=== PATIENT | male | born 1985 ===

== ENCOUNTER 2017-03-06 05:11 | Emergency (ER) | payer BC ==
[2017-03-06 05:25] VITALS: BP 140/89; PULSE 89; RESP 17; TEMP 98.8; O2SAT 99
[2017-03-06] MEDS ORDERED: Alum-Mag Hydrox-Simethicone Susp (30 mL) PO STA (05:27)
--- NOTE | 2017-03-06 05:32 | ED PDOC ---
HPI: Abdomen Time Seen by Provider: 03/06/17 05:17 Chief Complaint (Nursing): Abdominal Pain Chief Complaint (Provider): Abdominal Pain History Per: Patient Additional Complaint(s): 31 yo male, no PMH, presents to ED with complaints of epigastric abdominal pain since 2 am. No associatyed nausea or vomiting. No fever or chills. Pain is non radiating. Past Medical History Reviewed: Nursing Documentation, Vital Signs Vital Signs: Last Vital Signs Temp 98.8 F 03/06/17 05:19 Pulse 89 03/06/17 05:19 Resp 17 03/06/17 05:19 BP 140/89 03/06/17 05:19 Pulse Ox 99 03/06/17 05:19 - Medical History PMH: No Chronic Diseases - Surgical History Surgical History: No Surg Hx - Family History Family History: States: No Known Family Hx - Living Arrangements Living Arrangements: With Family - Social History Current smoker - smoking cessation education provided: No Alcohol: Social Drugs: Denies - Allergies Allergies/Adverse Reactions: Allergies Allergy/AdvReac Type Severity Reaction Status Date / Time No Known Allergies Allergy Verified 03/06/17 05:26 Review of Systems ROS Statement: Except As Marked, All Systems Reviewed And Found Negative Gastrointestinal: Positive for: Abdominal Pain Physical Exam - Reviewed Nursing Documentation Reviewed: Yes Vital Signs Reviewed: Yes - Physical Exam Appears: Positive for: Non-toxic, Uncomfortable Head Exam: Positive for: ATRAUMATIC, NORMAL INSPECTION, NORMOCEPHALIC Skin: Positive for: Normal Color, Warm, DRY Eye Exam: Positive for: EOMI, Normal appearance, PERRL ENT: Positive for: Normal ENT Inspection Neck: Positive for: Normal, Painless ROM Cardiovascular/Chest: Positive for: Regular Rate, Rhythm Respiratory: Positive for: CNT, Normal Breath Sounds Gastrointestinal/Abdominal: Positive for: Bowel Sounds, Soft, Tenderness ( epigastric), Other ((-) Miraz's sign) Back: Positive for: Normal Inspection Extremity: Positive for: Normal ROM Neurologic/Psych: Positive for: Alert, Oriented - ECG O2 Sat by Pulse Oximetry: 99 Medical Decision Making Medical Decision Making: IV access established and treatment initiated with IVF, Toradol and GI cocktail Diagnostics ordered. Disposition - Clinical Impression Clinical Impression: Abdominal pain - Patient ED Disposition Is Patient to be Admitted: No - Disposition Disposition: Routine/Home Disposition Time: 05:32 Condition: STABLE - POA Present On Arrival: None
--- NOTE | 2017-03-06 06:02 | ED PDOC ---
- Laboratory Results Result Diagrams: 03/06/17 05:40 03/06/17 05:40 - ECG O2 Sat by Pulse Oximetry: 99 (RA) Pulse Ox Interpretation: Normal Medical Decision Making Medical Decision Making: Time: 06:00 --Right upper quadrant US [facility]Pending ultrasound, reassessment, and disposition. Time: 07:00 --Transferred patient to Dr. Simran DINERO --Pending ultrasound, reassessment, and disposition. Disposition - Clinical Impression Clinical Impression: Abdominal pain, Gastritis - POA Present On Arrival: None - Disposition Referrals: [facility] [Outside] Disposition: Transfer of Care Disposition Time: 07:00 Condition: STABLE Prescriptions: Pantoprazole Sodium [Protonix] 40 mg PO DAILY #30 tablet. Instructions: Gastritis (ED) Patient Signed Over To: Aurelio Khalil
[2017-03-06 06:23] LABS: BASO # 0.1 K/uL (0.0-0.2); BASO % 0.5 % (0.0-2.0); EOS # 0.2 K/uL (0.0-0.7); EOS % 1.6 % (0.0-4.0); HEMATOCRIT 44.2 % (35.0-51.0); LYMPH # 2.9 K/uL (1.0-4.3); LYMPH % 27.8 % (20.0-40.0); MEAN CELL VOLUME 80.9 fl (80.0-94.0); MEAN CORPUSCULAR HEMOGLOBIN 26.4 pg (27.0-31.0); MEAN CORPUSCULAR HGB CONC 32.6 g/dL (33.0-37.0); MEAN PLATELET VOLUME 7.6 fl (7.2-11.7); MONO # 0.6 K/uL (0.0-0.8); MONO % 5.4 % (0.0-10.0); NEUT # 6.7 K/uL (1.8-7.0); NEUT % 64.7 % (50.0-75.0); RED CELL DISTRIBUTION WIDTH 13.8 % (11.5-14.5); WHITE BLOOD COUNT 10.3 K/uL (4.8-10.8)
--- NOTE | 2017-03-06 06:34 | ED PDOC ---
- Laboratory Results Result Diagrams: 03/06/17 05:40 03/06/17 05:40 - ECG O2 Sat by Pulse Oximetry: 99 (RA) Pulse Ox Interpretation: Normal Medical Decision Making Medical Decision Making: Time: 07:00 Pt signed over to me from Dr. Pinto pending ultrasound, reassessment, and disposition. Scribe Attestation: Documented by Stacey East, acting as a scribe for Aurelio Khalil MD. Provider Scribe Attestation: All medical record entries made by the Scribe were at my direction and personally dictated by me. I have reviewed the chart and agree that the record accurately reflects my personal performance of the history, physical exam, medical decision making, and the department course for this patient. I have also personally directed, reviewed, and agree with the discharge instructions and disposition. Disposition - Clinical Impression Clinical Impression: Abdominal pain, Gastritis - POA Present On Arrival: None - Disposition Referrals: [facility] [Outside] Disposition: Routine/Home Disposition Time: 10:38 Condition: STABLE Prescriptions: Pantoprazole Sodium [Protonix] 40 mg PO DAILY #30 tablet. Instructions: Gastritis (ED)
[2017-03-06 06:40] LABS: ALB/GLOB RATIO 1.7 (1.0-2.1); ALKALINE PHOSPHATASE 91 U/L (38-126); ALT/SGPT 107 U/L (21-72); AMYLASE 62 U/L (30-110); AST/SGOT 86 U/L (17-59); BILIRUBIN,TOTAL 0.7 mg/dl (0.2-1.3); BLOOD UREA NITROGEN 19 mg/dl (9-20); CARBON DIOXIDE 26 mmol/L (22-30); CHLORIDE 104 mmol/L (98-107); GFR AFRICAN-AMERICAN > 60; GLUCOSE,RANDOM 103 mg/dL (75-110); LIPASE 60 U/L (23-300); POTASSIUM 3.7 MMOL/L (3.6-5.0); SODIUM 140 mmol/l (132-148); TOTAL PROTEIN 6.7 G/DL (6.3-8.2)
--- NOTE | 2017-03-06 10:01 | US ---
HISTORY: r/o cholelithiasis COMPARISON: None. TECHNIQUE: Sonographic evaluation of the right upper quadrant of the abdomen. FINDINGS: LIVER: Measures approximately 16 cm cm in length. Smooth surface contour however slight increased echogenicity of the liver parenchyma suggesting fatty infiltration however other infiltrative hepatocellular disease process not excluded. . No mass. No intrahepatic bile duct dilatation. No ascites. GALLBLADDER: Unremarkable. No gallstones. COMMON BILE DUCT: Measures approximately 5 mm. No stones. No dilatation. PANCREAS: Unremarkable as visualized. No mass. No ductal dilatation. RIGHT KIDNEY: Measures measures approximately 10.6 x 5.1 x 5.6 cm in length. Normal echogenicity. No calculus, mass, or hydronephrosis. AORTA: No aneurysmal dilatation. IVC: Unremarkable. OTHER FINDINGS: None . IMPRESSION: Findings suggest mild fatty infiltration however other infiltrative hepatocellular disease process not exclude
[2017-03-06 10:24] LABS: RBC URINE 3 /hpf (0-3); URINE BACTERIA OCC (<OCC); URINE BILIRUBIN NEGATIVE (NEGATIVE); URINE BLOOD NEGATIVE (NEGATIVE); URINE COLOR YELLOW (YELLOW); URINE GLUCOSE (UA) NEG (Normal); URINE KETONE NEGATIVE (NEGATIVE); URINE LEUKOCYTE ESTERASE NEG Leu/uL (Negative); URINE PROTEIN NEGATIVE (NEGATIVE); WBC URINE 2 /hpf (0-5)
== END 2017-03-06 11:21 | disposition home or self-care (01) ==
LOC: H.ER 05:11
DX: K29.70 Gastritis, unspecified, without bleeding (principal); R10.13 Epigastric pain; R10.9 Unspecified abdominal pain
CPT/HCPCS: 76705; 80053; 81003; 82150; 83690; 84484; 85025; 96374; 96375; 99283; J1885; J2405

== ENCOUNTER 2017-05-14 16:52 | Inpatient (IN) | payer BC ==
[2017-05-14] MEDS ORDERED: Sodium Chloride 0.9% 1,000 ML IV STA (17:13)
[2017-05-14 17:42] LABS: BASO # 0.1 K/uL (0.0-0.2); BASO % 0.3 % (0.0-2.0); EOS # 0.1 K/uL (0.0-0.7); EOS % 0.8 % (0.0-4.0); HEMOGLOBIN 14.8 g/dL (12.0-18.0); LYMPH # 1.8 K/uL (1.0-4.3); LYMPH % 11.7 % (20.0-40.0); MEAN CELL VOLUME 80.2 fl (80.0-94.0); MEAN CORPUSCULAR HEMOGLOBIN 26.4 pg (27.0-31.0); MEAN PLATELET VOLUME 7.4 fl (7.2-11.7); MONO # 1.1 K/uL (0.0-0.8); NEUT # 12.2 K/uL (1.8-7.0); NEUT % 80.2 % (50.0-75.0); RBC 5.59 Mil/uL (4.40-5.90); WHITE BLOOD COUNT 15.2 K/uL (4.8-10.8)
[2017-05-14 17:44] LABS: VENOUS BLOOD GAS PCO2 46 mmHg (40-60); VENOUS BLOOD GAS PO2 30 mm/Hg (30-55)
--- NOTE | 2017-05-14 17:45 | ED PDOC ---
HPI: Abdomen Time Seen by Provider: 05/14/17 17:08 Chief Complaint (Nursing): Abdominal Pain Chief Complaint (Provider): Abdominal Pain History Per: Patient History/Exam Limitations: no limitations Onset/Duration Of Symptoms: Days (x2) Current Symptoms Are (Timing): Still Present Additional Complaint(s): Jorge Gomez is a 32 year old male who present to the emergency department with a complaint of constant, sharp left lower quadrant pain ongoing since last night. Denied any fever, chills, nausea, vomiting, constipation, diarrhea, hematuria, dysuria or radiation of pain. PMD: none provided Past Medical History Reviewed: Historical Data, Nursing Documentation, Vital Signs Vital Signs: Last Vital Signs Temp 98.2 F 05/16/17 07:31 Pulse 65 05/16/17 07:31 Resp 20 05/16/17 07:31 BP 113/72 05/16/17 07:31 Pulse Ox 97 05/16/17 07:31 - Medical History PMH: No Chronic Diseases - Surgical History Surgical History: No Surg Hx - Family History Family History: States: Unknown Family Hx - Social History Current smoker - smoking cessation education provided: Yes Alcohol: Occasional Drugs: Denies - Home Medications Home Medications: Ambulatory Orders Medication Instructions Recorded No Known Home Med 05/14/17 - Allergies Allergies/Adverse Reactions: Allergies Allergy/AdvReac Type Severity Reaction Status Date / Time No Known Allergies Allergy Verified 05/14/17 16:59 Review of Systems ROS Statement: Except As Marked, All Systems Reviewed And Found Negative Constitutional: Negative for: Fever, Chills Gastrointestinal: Positive for: Abdominal Pain (LLQ; constant and sharp). Negative for: Nausea, Vomiting, Diarrhea, Constipation Genitourinary Male: Negative for: Dysuria, Hematuria Physical Exam - Reviewed Nursing Documentation Reviewed: Yes Vital Signs Reviewed: Yes - Physical Exam Appears: Positive for: Well, Non-toxic, No Acute Distress Skin: Positive for: Normal Color Cardiovascular/Chest: Positive for: Regular Rate, Rhythm Respiratory: Positive for: CNT, Normal Breath Sounds Gastrointestinal/Abdominal: Positive for: Tenderness (LLQ). Negative for: Normal Exam, Guarding, Rebound Back: Positive for: Normal Inspection. Negative for: L CVA Tenderness, R CVA Tenderness Extremity: Positive for: Normal ROM Neurologic/Psych: Positive for: Alert, lead technical architect II-XII, Oriented - Laboratory Results Result Diagrams: 05/16/17 05:30 05/15/17 09:45 - ECG O2 Sat by Pulse Oximetry: 97 (RA) Pulse Ox Interpretation: Normal Medical Decision Making Medical Decision Making: Initial Impression: Diverticulitis; Kidney stones Initial Plan: * VBG shock panel * CT ABD/Pelivs with IV contrast * Labs * Urine dipstick * Tylenol 650mg PO * NS 1,000ml IV per 1,000 mls/hr * Blood culture * Urine culture * Urinalysis * Re-evaluation Time: 2024 --CT ABD/Pelvis FINDINGS: Lower thorax: There is minimal bibasilar atelectatic change or scarring. ABDOMEN: Liver: There is mild hepatomegaly. Gallbladder and bile ducts: Unremarkable. No calcified stones. No ductal dilation. Pancreas: Unremarkable. No mass. No ductal dilation. Spleen: Unremarkable. No splenomegaly. Adrenals: Unremarkable. No mass. Kidneys and ureters: There may be nonobstructing right nephrolithiasis Stomach and bowel: There is colonic diverticulosis with abnormal wall thickening and fat stranding in the distal descending and proximal sigmoid colon consistent with acute diverticulitis. Directly adjacent to the inflamed diverticulum in this location are a few air locules in the adjacent inflamed mesenteric fat which raises suspicion for focal perforation but no specific signs of abscess. Appendix: The appendix is unremarkable and seen best on axial image 96 of series 3. PELVIS: Bladder: Unremarkable. No mass. Reproductive: Unremarkable as visualized. ABDOMEN and PELVIS: Intraperitoneal space: Unremarkable. No free air. No significant fluid collection. Bones/joints: No acute fracture. No dislocation. Soft tissues: Unremarkable. Vasculature: Unremarkable. No abdominal aortic aneurysm. Lymph nodes: Unremarkable. No enlarged lymph nodes. IMPRESSION: 1. There is colonic diverticulosis with abnormal wall thickening and fat stranding in the distal descending and proximal sigmoid colon consistent with acute diverticulitis. Directly adjacent to the inflamed diverticulum in this location are a few air locules in the adjacent inflamed mesenteric fat which raises suspicion for focal perforation but no specific signs of abscess. 2. There may be nonobstructing right nephrolithiasis. Time: 2039 --Spoke to surgical garment inspector for consult. Notified of case. Started patient on Cipro and Flagyl prescription. Scribe Attestation: Documented by Robyn Nunez, acting as a scribe for Nelli Spencer MD. Provider Scribe Attestation: All medical record entries made by the Scribe were at my direction and personally dictated by me. I have reviewed the chart and agree that the record accurately reflects my personal performance of the history, physical exam, medical decision making, and the department course for this patient. I have also personally directed, reviewed, and agree with the discharge instructions and disposition. Disposition - Clinical Impression Clinical Impression: Diverticulitis of intestine with perforation - Patient ED Disposition Is Patient to be Admitted: Yes - Disposition Disposition Time: 21:58 Condition: STABLE - Pt Status Changed To: Hospital Disposition Of: Observation - POA Present On Arrival: None
[2017-05-14 17:49] LABS: SQUAMOUS EPITHIAL < 1 /hpf (0-5); URINE AMORPHOUS SEDIMENT RARE /ul (<OCC); URINE BILIRUBIN NEGATIVE (NEGATIVE); URINE BLOOD NEGATIVE (NEGATIVE); URINE CLARITY CLEAR (Clear); URINE COLOR YELLOW (YELLOW); URINE GLUCOSE (UA) NEG (Normal); URINE LEUKOCYTE ESTERASE NEG Leu/uL (Negative); URINE NITRATE NEGATIVE (NEGATIVE); URINE PROTEIN NEGATIVE (NEGATIVE); URINE UROBILINOGEN 0.2-1.0 mg/dL (0.2-1.0)
[2017-05-14 17:52] LABS: ALB/GLOB RATIO 1.6 (1.0-2.1); ALBUMIN 4.5 g/dL (3.5-5.0); ALT/SGPT 72 U/L (21-72); AST/SGOT 28 U/L (17-59); BLOOD UREA NITROGEN 17 mg/dl (9-20); CALCIUM 9.7 mg/dL (8.4-10.2); GFR AFRICAN-AMERICAN > 60; GFR NON-AFRICAN AMERICAN > 60
[2017-05-14] MEDS ORDERED: Sodium Chloride 0.9% 50 ML IV ONE (19:28)
[2017-05-14] MEDS ORDERED: Iohexol 300 100 ML IJ ONE (19:28)
[2017-05-14] MEDS ORDERED: metroNIDAZOLE 500mg/100ml NS 100 ML IV STA (20:32)
[2017-05-14] MEDS ORDERED: Ciprofloxacin 400mg/200ml D5W 400 MG/200 ML BAG IV STA (20:32)
[2017-05-14] MEDS ORDERED: metroNIDAZOLE 500mg/100ml NS 100 ML IVPB ONE (20:44)
[2017-05-14] MEDS ORDERED: Ciprofloxacin 400mg/200ml D5W 400 MG/200 ML BAG IVPB ONE (21:55)
--- NOTE | 2017-05-14 22:52 | CP.PCM.CON ---
History of Present Illness - History of Present Illness History of Present Illness: General Surgery Consult Note: Dr. Miller 32M w/ no PMHx presents to the ED w/ complaints of abdominal pain. Patient states pain began night. Describes pain was located along left lower quadrant. Patient shayne to work Wednesday and as per patient the pain did not improve and decided to come to ED. Upon admission to the ED patient complained of LLQ pain and was found to have a fever of 100.5. Reports this is the first time he has experienced such symptoms. Currently denies headache/dizziness, fever/chills, n/v/d, constipation. PMHx: as stated above PSurgHx: denies Allergies: NKDA Soc Hx: Smokes 1ppd x ~10 years. Denies illicit drug use. Review of Systems - Review of Systems Review of Systems: 12pt ROS carried out, unremarkable, except as stated in HPI Past Patient History - Infectious Disease Hx of Infectious Diseases: None - Past Social History Alcohol: Occasional Drugs: Denies - PSYCHIATRIC Hx Substance Use: No - SURGICAL HISTORY Hx Surgeries: No - ANESTHESIA Hx Anesthesia: No Meds Allergies/Adverse Reactions: Allergies Allergy/AdvReac Type Severity Reaction Status Date / Time No Known Allergies Allergy Verified 05/14/17 16:59 - Medications Medications: Current Medications Acetaminophen (Tylenol 325mg Tab) 650 mg PO Q6 PRN PRN Reason: Fever >100.4 F Famotidine (Pepcid) 20 mg PO DAILY [facility] Piperacillin Sod/Tazobactam (Sod 3.375 gm/ Sodium Chloride) 100 mls @ 100 mls/ hr IVPB Q6 [facility] Sodium Chloride (Sodium Chloride 0.9%) 1,000 mls @ 150 mls/hr IV .Q6H40M TJ Stop: 05/15/17 22:47 Ondansetron HCl (Zofran Inj) 4 mg IVP Q6 PRN PRN Reason: Nausea/Vomiting Results - Vital Signs Recent Vital Signs: Last Vital Signs Temp 98.4 F 05/14/17 22:37 Pulse 89 05/14/17 22:37 Resp 16 05/14/17 22:37 BP 132/74 05/14/17 22:37 Pulse Ox 97 05/14/17 22:15 - Labs Result Diagrams: 05/14/17 17:39 08/04/17 17:39 Assessment & Plan - Assessment and Plan (Free Text) Assessment: 32M w/ diverticulitis -NPO -IVF -Zosyn -Analgesic/Anti-emetics -Tylenol Q6H prn fever >100.4 -Will need repeat CT scan in a few days -DVT/GI ppx -D/w Dr. Paul Baig PGY-2
[2017-05-14] MEDS: Sodium Chloride 0.9% 1,000 ML IV SCH (23:06)
[2017-05-14] MEDS ORDERED: Morphine 4 MG/ML VIAL IVP PRN (23:07)
[2017-05-15 00:28] VITALS: O2SAT 97
[2017-05-15] MEDS ORDERED: metroNIDAZOLE 500mg/100ml NS 100 ML IVPB SCH (01:00)
[2017-05-15] MEDS: Piperacillin/Tazobact 3.375 GM in Sodium Chloride 0.9% 100 ML IVPB SCH ×4 (03:53→21:31)
[2017-05-15] MEDS: Sodium Chloride 0.9% 1,000 ML IV SCH ×3 (06:12→19:15)
--- NOTE | 2017-05-15 08:40 | CT ---
PROCEDURE: CT Abdomen and Pelvis with contrast HISTORY: LLQ pain, fever COMPARISON: None. TECHNIQUE: Contrast dose: 100 cc of Optiray 350 Radiation dose: Total exam DLP = 1016 mGy-cm. This CT exam was performed using one or more of the following dose reduction techniques: Automated exposure control, adjustment of the mA and/or kV according to patient size, and/or use of iterative reconstruction technique. FINDINGS: LOWER THORAX: Unremarkable. LIVER: Unremarkable. No gross lesion or ductal dilatation. GALLBLADDER AND BILE DUCTS: Unremarkable. PANCREAS: Unremarkable. No gross lesion or ductal dilatation. SPLEEN: Unremarkable. ADRENALS: Unremarkable. No mass. KIDNEYS AND URETERS: Questionable right nephrolithiasis.. No hydronephrosis. No solid mass. VASCULATURE: Unremarkable. No aortic aneurysm. BOWEL: Descending colon diverticulosis with pericolonic fat infiltration consistent with acute diverticulitis.. No obstruction. No gross mural thickening. APPENDIX: Normal appendix. PERITONEUM: Unremarkable. No free fluid. No free air. LYMPH NODES: Unremarkable. No enlarged lymph nodes. BLADDER: Unremarkable. REPRODUCTIVE: Unremarkable. BONES: No acute fracture. OTHER FINDINGS: None. IMPRESSION: Descending colon diverticulosis with pericolonic fat infiltration consistent with acute diverticulitis.
[2017-05-15] MEDS ORDERED: metroNIDAZOLE 500mg/100ml NS IVPB SCH (09:45)
[2017-05-15 09:53] LABS: BASO # 0.1 K/uL (0.0-0.2); BASO % 0.4 % (0.0-2.0); EOS # 0.1 K/uL (0.0-0.7); EOS % 0.8 % (0.0-4.0); LYMPH # 2.2 K/uL (1.0-4.3); LYMPH % 17.4 % (20.0-40.0); MEAN CELL VOLUME 80.1 fl (80.0-94.0); MEAN CORPUSCULAR HEMOGLOBIN 26.7 pg (27.0-31.0); MEAN CORPUSCULAR HGB CONC 33.4 g/dL (33.0-37.0); MEAN PLATELET VOLUME 7.4 fl (7.2-11.7); MONO # 1.1 K/uL (0.0-0.8); MONO % 8.3 % (0.0-10.0); NEUT # 9.4 K/uL (1.8-7.0); NEUT % 73.1 % (50.0-75.0); RBC 5.24 Mil/uL (4.40-5.90); RED CELL DISTRIBUTION WIDTH 13.9 % (11.5-14.5); WHITE BLOOD COUNT 12.8 K/uL (4.8-10.8)
[2017-05-15 10:54] LABS: ALB/GLOB RATIO 1.5 (1.0-2.1); ALBUMIN 3.8 g/dL (3.5-5.0); ALT/SGPT 60 U/L (21-72); AST/SGOT 20 U/L (17-59); BLOOD UREA NITROGEN 12 mg/dl (9-20); CALCIUM 8.7 mg/dL (8.4-10.2); GFR AFRICAN-AMERICAN > 60; GFR NON-AFRICAN AMERICAN > 60
--- NOTE | 2017-05-15 11:05 | CP.PCM.PN ---
Subjective - Date & Time of Evaluation Date of Evaluation: 05/15/17 Time of Evaluation: 07:00 - Subjective Subjective: GENERAL SURGERY PROGRESS NOTE FOR DR. ALVAREZ Patient seen and examined at bedside. He denies abdominal pain currently. He had some pain on and off overnight. He denies nausea or vomiting. he is ambulating to the bathroom. He is passing flatus and had a BM yesterday. Objective - Vital Signs/Intake and Output Vital Signs (last 24 hours): Temp Pulse Resp BP Pulse Ox 98.3 F 82 20 106/65 97 05/15/17 07:29 05/15/17 07:29 05/15/17 07:29 05/15/17 07:29 05/15/17 07:29 - Medications Medications: Current Medications Acetaminophen (Tylenol 325mg Tab) 650 mg PO Q6 PRN PRN Reason: Fever >100.4 F Famotidine (Pepcid) 20 mg PO DAILY [facility] Last Admin: 05/15/17 08:06 Dose: 20 mg Piperacillin Sod/Tazobactam (Sod 3.375 gm/ Sodium Chloride) 100 mls @ 100 mls/ hr IVPB Q6 [facility] Last Admin: 05/15/17 09:23 Dose: 100 mls/hr Sodium Chloride (Sodium Chloride 0.9%) 1,000 mls @ 150 mls/hr IV .Q6H40M [facility] Stop: 05/15/17 22:47 Last Admin: 05/15/17 06:12 Dose: 150 mls/hr Metronidazole (Flagyl 500mg/100ml Ns) 100 mls @ 100 mls/hr IVPB Q8 [facility] Morphine Sulfate (Morphine) 4 mg IVP Q4 PRN PRN Reason: Pain, moderate (4-7) Ondansetron HCl (Zofran Inj) 4 mg IVP Q6 PRN PRN Reason: Nausea/Vomiting - Labs Labs: 05/15/17 09:40 - Constitutional Appears: Well, Non-toxic, No Acute Distress - Head Exam Head Exam: ATRAUMATIC, NORMAL INSPECTION - Respiratory Exam Respiratory Exam: NORMAL BREATHING PATTERN. absent: Respiratory Distress - Cardiovascular Exam Cardiovascular Exam: +S1, +S2 - GI/Abdominal Exam GI & Abdominal Exam: Soft, Tenderness (mild tenderness in LLQ). absent: Distended, Firm, Guarding, Rigid, Rebound - Neurological Exam Neurological Exam: Alert, Awake, Oriented x3 - Psychiatric Exam Psychiatric exam: Normal Affect, Normal Mood - Skin Skin Exam: Dry, Intact, Normal Color, Warm Assessment and Plan - Assessment and Plan (Free Text) Assessment: 32yo M with diverticulitis with possible focal perforation but no signs of abscess - Afebrile since ED - Leukocytosis decreasing, WBC 12.8 today, down from 15.2 yesterday - NPO - IV Fluids - IV Abx - Will need repeat CT scan in a few days - Discussed plan with Dr. Paul Diez PGY-3
[2017-05-15] MEDS: metroNIDAZOLE 500mg/100ml NS 100 ML IVPB SCH ×2 (11:48→16:13)
[2017-05-16] MEDS: metroNIDAZOLE 500mg/100ml NS 100 ML IVPB SCH ×2 (00:40→08:30)
[2017-05-16] MEDS: Piperacillin/Tazobact 3.375 GM in Sodium Chloride 0.9% 100 ML IVPB SCH ×2 (04:28→08:59)
[2017-05-16 07:31] LABS: BASO # 0.1 K/uL (0.0-0.2); BASO % 0.6 % (0.0-2.0); EOS # 0.2 K/uL (0.0-0.7); EOS % 2.1 % (0.0-4.0); HEMOGLOBIN 12.9 g/dL (12.0-18.0); LYMPH # 2.3 K/uL (1.0-4.3); LYMPH % 25.5 % (20.0-40.0); MEAN CELL VOLUME 80.8 fl (80.0-94.0); MEAN CORPUSCULAR HEMOGLOBIN 26.6 pg (27.0-31.0); MEAN PLATELET VOLUME 7.3 fl (7.2-11.7); MONO # 0.7 K/uL (0.0-0.8); NEUT # 5.6 K/uL (1.8-7.0); NEUT % 63.8 % (50.0-75.0); RBC 4.84 Mil/uL (4.40-5.90); WHITE BLOOD COUNT 8.8 K/uL (4.8-10.8)
[2017-05-16 07:32] VITALS: BP 113/72; PULSE 65; RESP 20; TEMP 98.2
--- NOTE | 2017-05-16 07:37 | CP.PCM.PN ---
Subjective - Date & Time of Evaluation Date of Evaluation: 05/16/17 Time of Evaluation: 07:35 - Subjective Subjective: General Surgery - Dr. Miller Pt S&E. GARCÍA. Pt states his pain is greatly improved today and that he feels ready to go home, though has not eaten yet. He has been OOB and ambulating. No N/V, F/C, SOb/Cp. Objective - Vital Signs/Intake and Output Vital Signs (last 24 hours): Temp Pulse Resp BP Pulse Ox 98.2 F 65 20 113/72 97 05/16/17 07:31 05/16/17 07:31 05/16/17 07:31 05/16/17 07:31 05/16/17 07:31 - Medications Medications: Current Medications Acetaminophen (Tylenol 325mg Tab) 650 mg PO Q6 PRN PRN Reason: Fever >100.4 F Famotidine (Pepcid) 20 mg PO DAILY [facility] Last Admin: 05/15/17 08:06 Dose: 20 mg Piperacillin Sod/Tazobactam (Sod 3.375 gm/ Sodium Chloride) 100 mls @ 100 mls/ hr IVPB Q6 [facility] Last Admin: 05/16/17 04:28 Dose: 100 mls/hr Metronidazole (Flagyl 500mg/100ml Ns) 100 mls @ 100 mls/hr IVPB Q8 [facility] Last Admin: 05/16/17 00:40 Dose: 100 mls/hr Morphine Sulfate (Morphine) 4 mg IVP Q4 PRN PRN Reason: Pain, moderate (4-7) Ondansetron HCl (Zofran Inj) 4 mg IVP Q6 PRN PRN Reason: Nausea/Vomiting - Constitutional Appears: No Acute Distress - Head Exam Head Exam: ATRAUMATIC, NORMAL INSPECTION, NORMOCEPHALIC - Eye Exam Eye Exam: Normal appearance - ENT Exam ENT Exam: Mucous Membranes Moist - Respiratory Exam Respiratory Exam: NORMAL BREATHING PATTERN. absent: Respiratory Distress - Cardiovascular Exam Cardiovascular Exam: REGULAR RHYTHM - GI/Abdominal Exam GI & Abdominal Exam: Soft. absent: Distended, Firm, Guarding, Rigid, Tenderness , Mass, Rebound - Neurological Exam Neurological Exam: Alert, Oriented x3 - Psychiatric Exam Psychiatric exam: Normal Affect, Normal Mood - Skin Skin Exam: Dry, Intact Assessment and Plan - Assessment and Plan (Free Text) Assessment: 32yo M with uncomplicated diverticulitis - Afebrile, WBC trending down, Pain resolving - Clear liquid diet and advance as tolerated to low residue, if pain reoccurs revert to NPO - Cont. IV Abx - No surgical intervention Will DW Dr. Paul Kraft PGy3
[2017-05-16] MEDS ORDERED: Sodium Chloride 0.9% 1,000 ML IV SCH (08:30)
--- NOTE | 2017-05-16 12:31 | CP.PCM.HP ---
History of Present Illness - History of Present Illness History of Present Illness: This is a 32 y/o male admitted for worsening of abdominal pain for the past 24 hrs prior to ER visist. Claims that he started having vague abdominal pain on and proceeded to go to work. Symptoms worsen hence visited the ER. He had low grade fever upon ER eval . He denies having nausea , vomiting or diarrhea. He had never had the symptom before. He has a hx of kidney stones otherwise medical hx is unremarkable. At the ER CT scan showed diverticuloses and diverticulitis. Present on Admission - Present on Admission Any Indicators Present on Admission: No History of DVT/PE: No History of Uncontrolled Diabetes: No Urinary Catheter: No Decubitus Ulcer Present: No Past Patient History - Infectious Disease Hx of Infectious Diseases: None - Past Medical History & Family History Past Medical History?: No - Past Social History Smoking Status: Heavy Smoker > 10 Cigarettes Daily - CARDIAC Hx Cardiac Disorders: No - PULMONARY Hx Respiratory Disorders: No - NEUROLOGICAL Hx Neurological Disorder: No - HEENT Hx HEENT Problems: No - RENAL Hx Chronic Kidney Disease: No - ENDOCRINE/METABOLIC Hx Endocrine Disorders: No - HEMATOLOGICAL/ONCOLOGICAL Hx Blood Disorders: No Hx AIDS: No Hx Human Immunodeficiency Virus (HIV): No - INTEGUMENTARY Hx Dermatological Problems: No - MUSCULOSKELETAL/RHEUMATOLOGICAL Hx Musculoskeletal Disorders: No Hx Falls: No - GASTROINTESTINAL Hx Gastrointestinal Disorders: No - GENITOURINARY/GYNECOLOGICAL Hx Genitourinary Disorders: No Hx Prostate Problems: No - PSYCHIATRIC Hx Psychophysiologic Disorder: No Hx Substance Use: No - SURGICAL HISTORY Hx Surgeries: No - ANESTHESIA Hx Anesthesia: No Meds Allergies/Adverse Reactions: Allergies Allergy/AdvReac Type Severity Reaction Status Date / Time No Known Allergies Allergy Verified 05/14/17 16:59 Physical Exam - Head Exam Head Exam: NORMAL INSPECTION - Eye Exam Eye Exam: Normal appearance - ENT Exam ENT Exam: Mucous Membranes Moist - Respiratory Exam Respiratory Exam: Clear to Auscultation Bilateral - Cardiovascular Exam Cardiovascular Exam: REGULAR RHYTHM - GI/Abdominal Exam GI & Abdominal Exam: Firm, Rigid, Tenderness - Neurological Exam Neurological exam: CN II-XII Intact, Oriented x3 - Psychiatric Exam Psychiatric exam: Normal Mood Results - Vital Signs Recent Vital Signs: Last Vital Signs Temp 98.2 F 05/16/17 07:31 Pulse 65 05/16/17 07:31 Resp 20 05/16/17 07:31 BP 113/72 05/16/17 07:31 Pulse Ox 97 05/16/17 07:31 - Labs Result Diagrams: 05/16/17 05:30 05/15/17 09:45 Labs: Laboratory Results - last 24 hr 05/16/17 05:30 WBC 8.8 RBC 4.84 Hgb 12.9 Hct 39.1 MCV 80.8 MCH 26.6 L MCHC 33.0 RDW 14.0 Plt Count 202 MPV 7.3 Neut % (Auto) 63.8 Lymph % (Auto) 25.5 [place] % (Auto) 8.0 Eos % (Auto) 2.1 Baso % (Auto) 0.6 Neut # 5.6 Lymph # 2.3 [place] # 0.7 Eos # 0.2 Baso # 0.1 Assessment & Plan (1) Diverticulitis Status: Acute (2) Colon, diverticulosis Status: Acute (3) Nephrolithiasis Status: Acute - Assessment and Plan (Free Text) Plan: Keep NPO Hydrate IV antibiotics protonix monitor sed rate cbc cmp discussed diet.
--- NOTE | 2017-05-16 12:40 | CP.PCM.DIS ---
Provider - Provider Date of Admission: 05/15/17 10:52 Attending physician: Bruce Sharma MD Time Spent in preparation of Discharge (in minutes): 30 Diagnosis - Discharge Diagnosis (1) Diverticulitis Status: Acute (2) Colon, diverticulosis Status: Acute (3) Nephrolithiasis Status: Acute Hospital Course - Lab Results Lab Results: Most Recent Lab Values WBC 8.8 K/uL (4.8-10.8) 05/16/17 05:30 RBC 4.84 Mil/uL (4.40-5.90) 05/16/17 05:30 Hgb 12.9 g/dL (12.0-18.0) 05/16/17 05:30 Hct 39.1 % (35.0-51.0) 05/16/17 05:30 MCV 80.8 fl (80.0-94.0) 05/16/17 05:30 MCH 26.6 pg (27.0-31.0) L 05/16/17 05:30 MCHC 33.0 g/dL (33.0-37.0) 05/16/17 05:30 RDW 14.0 % (11.5-14.5) 05/16/17 05:30 Plt Count 202 K/uL (130-400) 05/16/17 05:30 MPV 7.3 fl (7.2-11.7) 05/16/17 05:30 Neut % (Auto) 63.8 % (50.0-75.0) 05/16/17 05:30 Lymph % (Auto) 25.5 % (20.0-40.0) 05/16/17 05:30 [place] % (Auto) 8.0 % (0.0-10.0) 05/16/17 05:30 Eos % (Auto) 2.1 % (0.0-4.0) 05/16/17 05:30 Baso % (Auto) 0.6 % (0.0-2.0) 05/16/17 05:30 Neut # 5.6 K/uL (1.8-7.0) 05/16/17 05:30 Lymph # 2.3 K/uL (1.0-4.3) 05/16/17 05:30 [place] # 0.7 K/uL (0.0-0.8) 05/16/17 05:30 Eos # 0.2 K/uL (0.0-0.7) 05/16/17 05:30 Baso # 0.1 K/uL (0.0-0.2) 05/16/17 05:30 ESR 10 mm/hr (0-15) 05/15/17 09:40 pO2 30 mm/Hg (30-55) 05/14/17 17:35 VBG pH 7.40 (7.32-7.43) 05/14/17 17:35 VBG pCO2 46 mmHg (40-60) 05/14/17 17:35 VBG HCO3 26.2 mmol/L 05/14/17 17:35 VBG Total CO2 29.9 mmol/L (22-28) H 05/14/17 17:35 VBG O2 Sat (Calc) 70.8 % (40-65) H 05/14/17 17:35 VBG Base Excess 3.0 mmol/L (0.0-2.0) H 05/14/17 17:35 VBG Potassium 3.9 mmol/L (3.6-5.2) 05/14/17 17:35 Sodium 136.0 mmol/L (132-148) 05/14/17 17:35 Chloride 102.0 mmol/L (98-107) 05/14/17 17:35 Glucose 105 mg/dL (75-110) 05/14/17 17:35 Lactate 1.1 mmol/L (0.7-2.1) 05/14/17 17:35 FiO2 21.0 % 05/14/17 17:35 Sodium 139 mmol/l (132-148) 05/15/17 09:45 Potassium 4.6 MMOL/L (3.6-5.0) 05/15/17 09:45 Chloride 104 mmol/L (98-107) 05/15/17 09:45 Carbon Dioxide 28 mmol/L (22-30) 05/15/17 09:45 Anion Gap 11 (10-20) 05/15/17 09:45 BUN 12 mg/dl (9-20) 05/15/17 09:45 Creatinine 0.9 mg/dL (0.8-1.5) 05/15/17 09:45 Est GFR ( Amer) > 60 05/15/17 09:45 Est GFR (Non-Af Amer) > 60 05/15/17 09:45 Random Glucose 93 mg/dL (75-110) 05/15/17 09:45 Calcium 8.7 mg/dL (8.4-10.2) 05/15/17 09:45 Total Bilirubin 2.5 mg/dl (0.2-1.3) H 05/15/17 09:45 AST 20 U/L (17-59) 05/15/17 09:45 ALT 60 U/L (21-72) 05/15/17 09:45 Alkaline Phosphatase 68 U/L (38-126) 05/15/17 09:45 Total Protein 6.3 G/DL (6.3-8.2) 05/15/17 09:45 Albumin 3.8 g/dL (3.5-5.0) 05/15/17 09:45 Globulin 2.6 gm/dL (2.2-3.9) 05/15/17 09:45 Albumin/Globulin Ratio 1.5 (1.0-2.1) 05/15/17 09:45 Venous Blood Potassium 3.9 mmol/L (3.6-5.2) 05/14/17 17:35 Urine Color Yellow (YELLOW) 05/14/17 17:35 Urine Clarity Clear (Clear) 05/14/17 17:35 Urine pH 6.0 (5.0-8.0) 05/14/17 17:35 Ur Specific [place] 1.010 (1.003-1.030) 05/14/17 17:35 Urine Protein Negative mg/dL (NEGATIVE) 05/14/17 17:35 Urine Glucose (UA) Neg mg/dL (Normal) 05/14/17 17:35 Urine Ketones Negative mg/dL (NEGATIVE) 05/14/17 17:35 Urine Blood Negative (NEGATIVE) 05/14/17 17:35 Urine Nitrate Negative (NEGATIVE) 05/14/17 17:35 Urine Bilirubin Negative (NEGATIVE) 05/14/17 17:35 Urine Urobilinogen 0.2-1.0 mg/dL (0.2-1.0) 05/14/17 17:35 Ur Leukocyte Esterase Neg [place]/uL (Negative) 05/14/17 17:35 Urine RBC (Auto) 1 /hpf (0-3) 05/14/17 17:35 Urine Microscopic WBC 1 /hpf (0-5) 05/14/17 17:35 Ur Squamous Epith Cells < 1 /hpf (0-5) 05/14/17 17:35 Amorphous Sediment Rare /ul (<OCC) H 05/14/17 17:35 - Hospital Course Hospital Course: This is a 32 y/o male admitted for acute abdominal pain. CT scan showed diverticuloses and diverticulitis. Started on IV antibiotics and kept on NPO. Repeat cbc showed WBC t have decreased to normal. He was able to tolerate liquids on tatyana 2nd day and diet was advanced. He was sent home in stable condition on the 2nd day and sent on Cipro and flagyl. He was advised to follow up in 1 week. Discharge Exam - Head Exam Head Exam: NORMAL INSPECTION - Eye Exam Eye Exam: Normal appearance - Respiratory Exam Respiratory Exam: NORMAL BREATHING PATTERN - Cardiovascular Exam Cardiovascular Exam: REGULAR RHYTHM - GI/Abdominal Exam GI & Abdominal Exam: Normal Bowel Sounds - Neurological Exam Neurological exam: CN II-XII Intact, Oriented x3 - Psychiatric Exam Psychiatric exam: Normal Mood Discharge Plan - Follow Up Plan Condition: GOOD Disposition: HOME/ ROUTINE Additional Instructions: Cont meds Cont tx Cont PT Rx given follow up in 1 week. discussed diet.
--- NOTE | 2017-05-17 10:58 | PQF GENQUE ---
Dr. Sharma, Is there an associated dx to go along with the following labs and V/S plus a documented infection: Diverticulitis? WBC: 15.2->12.8->8.8 with a left shift Temp.: 100.5->98.4->98.4 Pulse:109->89 OR: Disagree OR: Unable to determine CT Abdomen Pelvis: Impression : Descending colon diverticulosis with pericolonic fat infiltration consistent with acute diverticulitis ER MD: Impression: Diverticulitis of intestine with perforation POA: None Surgery consult: Impression Diverticulitis H and P: At the ER CT scan showed diverticuloses and diverticulitis. Impression: (1) Diverticulitis Status: Acute (2) Colon, diverticulosis Status: Acute (3) Nephrolithiasis Status: Acute Keep NPO ,Hydrate ,IV antibiotics, protonix, monitor sed rate cbc cmp discussed diet This form is a permanent part of the medical record Clarification of your documentation is requested to better reflect the severity of illness and intensity of treatment of your patient. Indicators present [] Specify: [] [] Specify: [] [] Specify: [] [] Specify: [] Location in the medical record that reflects the above clinical findings: [] Treatment Provided: [] PHYSICIAN'S RESPONSE Based on your medical judgment of the clinical indicators outlined above please clarify the following: [] Practitioner response [] If unable to determine, please check the box, sign and date. Present On Admission (POA) Indicator: [] Present at the time of admission [] Not present at the time of admission [] Clinically Undetermined In responding to this query, please exercise your independent professional judgment. The fact that a question is asked does not imply that any particular answer is desired or expected. Thank you for your clarification on this documentation. If you have any questions please call. * Thank you, Ariana Wills RN BSN ext. #[phone] MTDD
== END 2017-05-16 14:42 | disposition home or self-care (01) | DRG 392 ==
LOC: EDBD 16:52 → H.ER 16:52 → H.ERHOLD 21:58 → H.MEDSURG1 22:36 → OBSVTOIN 05-15 10:52
PROVIDERS: ADMIT Family Medicine; ATTEND Family Medicine
DX: K57.32 Diverticulitis of large intestine without perforation or abscess without bleeding (principal); N20.0 Calculus of kidney; F17.200 Nicotine dependence, unspecified, uncomplicated